=== PATIENT | male | born 1950 | race Caucasian/White ===

== ENCOUNTER 2016-10-29 09:13 | Day surgery (SDC) | payer OTHER ==
[~2016-10-29] VITALS: Ht 175.3 cm; Wt 75.0 kg
[~2016-10-29 09:13] MED LIST: 0.9% Sodium Chloride 1,000 ML IV SCH; CRB200T PO; FLUO20CA25 PO; KETO200T PO; LAMO200T2 PO; LISI-567 PO; OLAN15TA17 PO; Sodium Chloride LOK Flush 10 mL Syringe IV PRN; fentaNYL-PF 50 mCg/mL 2 mL Inj IVPUSH PRN
[2016-10-29 09:29] VITALS: BP 150/88; PULSE 84; RESP 16; O2SAT 94
[2016-10-29 10:34] VITALS: BP 155/93; PULSE 74; RESP 14; O2SAT 94
[2016-10-29 10:45] VITALS: BP 136/74; PULSE 68; RESP 12; O2SAT 95
[2016-10-29 10:52] VITALS: BP 163/94; PULSE 74; RESP 14; O2SAT 94
--- NOTE | 2016-10-29 11:40 | ENDO ---
[address] [address] ENDOSCOPY PROCEDURE PATIENT: CASEY PARK : 1950 MR#: [id number] ADMIT: 10/29/2016 JOB ID: [id number] DATE: 10/29/2016 TYPE OF OPERATION: Colonoscopy with biopsy. PREOPERATIVE DIAGNOSIS(ES): History of tubular adenoma polyps. POSTOPERATIVE DIAGNOSIS(ES): 1. Eight sigmoid polyps, largest size 3 mm diameter, all removed by cold biopsy forceps. 2. One rectal polyp measuring 2 mm in size, removed by cold biopsy forceps. 3. Mild sigmoid diverticulosis. ANESTHESIA: 1. Fentanyl 175 mcg. 2. Versed 7 mg IV administered. COMPLICATIONS: None. BLOOD LOSS: Minimal. DESCRIPTION OF PROCEDURE: After the risks and benefits had been explained to the patient, informed consent was obtained. After anesthesia administered, colonoscope was then inserted from rectum to cecum. Mucosa carefully examined. Prep of the patient was fair. After the procedure was done, the scope withdrawn and procedure terminated. FINDINGS: Upon inspection of the anus, no masses, hemorrhoids, ulcers, or fissures that were seen. Throughout the entire examination, there is mild sigmoid diverticulosis. There were eight sigmoid polyps removed in the sigmoid colon, the largest size 3-4 mm diameter. There was also one rectal polyp, largest measuring 2 mm removed by cold biopsy forceps. Retroflexion was normal. Pt had pain throughout the entire procedure. IMPRESSIONS: 1. Eight sigmoid polyps, the largest size 3-4 mm in diameter, removed by cold biopsy forceps. 2. Rectal polyp 2 mm, removed by cold biopsy forceps. 3. Mild sigmoid diverticulosis. RECOMMENDATIONS: 1. Await pathology results. 2. Repeat colonoscopy in three years for history of tubular adenoma polyps. Would recommend MAC given Pt had pain throughout the entire procedure. [facility]
--- NOTE | 2016-10-30 10:37 | PATH ---
SURGICAL PATHOLOGY Attending Physician:Rafael Jensen MD CASE STATUS: Signed Out PATIENT NAME: CASEY PARK PID: [id number] : 1950 DATE COLLECTED:10/29/2016 15:17 SPECIMEN: 1: Rectum, Biopsy 2: Colon, Biopsy CLINICAL HISTORY: A: RECTAL POLYP X1 B: SIGMOID COLON POLYP X8 FINAL DIAGNOSIS: 1.RECTAL POLYP: HYPERPLASTIC POLYP. 2.SIGMOID COLON POLYPS: HYPERPLASTIC POLYPS, MULTIPLE FRAGMENTS. ICD10 CODE K62.1 K63.5 GROSS DESCRIPTION: The specimen is received in two formalin filled containers labeled with the patient's name. 1). The specimen is sublabeled "rectal polyp" and consists of a 0.4 x 0.3 x 0.3 CM portion of tissue which is entirely submitted in cassette 1A. 2). The specimen is sublabeled "sigmoid colon polyp" and consists of multiple portions of tissue which aggregate to 1.0 x 0.5 x 0.3 CM. The specimen is entirely submitted in cassette 2A. 10/29/2016 DAC MICRO DESCRIPTION: See diagnosis. ICD-9 CODES: CPT CODES: 1: 92366 2: 98362 Electronically Signed Out Page Cummings MD [facility], [place] [address] Technical component performed at [facility], [address] [place] [address] [address], [place], [address]
== END 2016-10-29 23:59 | disposition home or self-care (01) ==
LOC: END 09:13
PROVIDERS: ATTEND Internal Medicine Gastroenterology
DX: Z12.11 Encounter for screening for malignant neoplasm of colon (principal); Z86.010 Personal history of colon polyps; K62.1 Rectal polyp; K63.5 Polyp of colon; K57.30 Diverticulosis of large intestine without perforation or abscess without bleeding; J45.909 Unspecified asthma, uncomplicated; J44.9 Chronic obstructive pulmonary disease, unspecified; F31.9 Bipolar disorder, unspecified; F17.210 Nicotine dependence, cigarettes, uncomplicated
CPT/HCPCS: 45380; 88305; 99153; G0500; J2250; J7030